=== PATIENT | female | born 1970 | race Caucasian/White ===

== ENCOUNTER 2023-06-11 23:23 | Emergency (ER) | payer OTHER ==
[~2023-06-11] VITALS: Ht 170.2 cm; Wt 100.7 kg
[2023-06-11 23:35] VITALS: BP 132/92
[2023-06-12] MEDS ORDERED: ACETAMINOPHEN500 M2 PO (02:03)
[2023-06-12] MEDS ORDERED: PRILOSEC OTC20 MG (02:04)
[2023-06-12] MEDS ORDERED: [UNRECOGNIZED DRUG - CODE] PO (02:04)
[2023-06-12] MEDS ORDERED: AMITRIPTYLINE H25 MG PO (02:04)
[2023-06-12] MEDS ORDERED: LISI20 PO (02:04)
[2023-06-12] MEDS ORDERED: Methocarbamol500 MG PO (02:05)
[2023-06-12] MEDS ORDERED: PRAZOSIN HCL1 M2 PO (02:05)
[2023-06-12] MEDS ORDERED: HYDCHL25 PO (02:05)
[2023-06-12] MEDS ORDERED: ACET500 PO (03:09)
[2023-06-12] MEDS ORDERED: TRAM50 PO (03:09)
[2023-06-12] MEDS ORDERED: NAPR500ERA PO (03:09)
== END 2023-06-12 03:43 | disposition home or self-care (01) ==
LOC: ER 23:23
DX: M25.562 Pain in left knee (principal); W19.XXXA Unspecified fall, initial encounter
CPT/HCPCS: 93971; 96372; 99283-25; A9270; J1885

== ENCOUNTER 2023-06-21 16:17 | Emergency (ER) | payer OTHER ==
[~2023-06-21] VITALS: Ht 167.6 cm; Wt 103.0 kg
[~2023-06-21 16:17] MED LIST: ACET500 PO; ACETAMINOPHEN500 M2 PO; AMITRIPTYLINE H25 MG PO; HYDCHL25 PO; LISI20 PO; Methocarbamol500 MG PO; NAPR500ERA PO; PRAZOSIN HCL1 M2 PO; PRILOSEC OTC20 MG; TRAM50 PO; [UNRECOGNIZED DRUG - CODE] PO
[2023-06-21 16:43] VITALS: BP 136/105
== END 2023-06-21 19:48 | disposition home or self-care (01) ==
LOC: ER 16:17
DX: M25.562 Pain in left knee (principal); G89.29 Other chronic pain; Z79.899 Other long term (current) drug therapy; M19.90 Unspecified osteoarthritis, unspecified site
CPT/HCPCS: 73562-LT; 96372; 99283-25; A9270; J1885